=== PATIENT | male | born 1990 | race African-American/Black ===

== ENCOUNTER 2022-08-05 07:06 | Emergency (ER) | payer SELFPAY ==
--- OUTSIDE RECORDS SUMMARY | 2022-08-05 07:09 | XMS REPORT | Continuity of Care Document ---
:1990 Author Organization [facility] t Address [address] [place] [address] Care Team Providers Name Role Phone Asked, No Pcp Primary Care Physician Unavailable CARMEN GUZMAN Attending Clinician Unavailable TERENCE CONNORS Attending Clinician Unavailable BOB CHRISTIANSEN Attending Clinician Unavailable Payers Payer Name Policy Type Policy Number Effective Date Expiration Date S ource Problems This patient has no known problems. Allergies, Adverse Reactions, Alerts Allergy Allergy Status Severity Reaction(s) Onset Inactive Treating Comm ents Source Name Type Date Date Clinician No Known DA Active [facility] Allergie 11-07 [facility] 00:00: d 00 [facility] [place] Social History Social Habit Start Date Stop Date Quantity Comments [facility] History of tobacco Smokes tobacco [facility] Alcohol intake 2021-06-05 2021-06-05 Ex-drinker [facility]00 [facility]:00 (finding) Hospital History of Social 2021-06-05 2021-06-[address] function 00:00:00 00:00:00 Hospital Tobacco use and 2019-11-10 2019-11-10 Smokeless [facility] exposure 00:00:00 00:00:00 tobacco non-user Hospital Sex Assigned At [birth year] [facility] Smoking Status Start Date Stop Date Source Smokes tobacco daily 2019-11-10 00:00:[address] [facility] Medications This patient has no known medications. Procedures This patient has no known procedures. Plan of Care Planned Activity Planned Date Details Comments Source Future Scheduled 2022-07-26 COVID-19 VACCINE (#1) [facility] Test 13:35:13 [code = COVID-19 VACCINE (#1)] Future Scheduled 2022-07-26 Pneumococcal Vaccine: [facility] Test 13:35:13 Pediatrics (0 to 5 Years) and At-Risk Patients (6 to 64 Years) (1 - PCV) [code = Pneumococcal Vaccine: Pediatrics (0 to 5 Years) and At-Risk Patients (6 to 64 Years) (1 - PCV)] Future Scheduled 2022-07-26 Hepatitis C screening [facility] Test 13:35:13 (procedure) [code = 399361318] Future Scheduled 2022-07-26 INFLUENZA VACCINE [facility] Test 13:35:13 [code = INFLUENZA VACCINE] Encounters Start End Encounter Admission Attending Care Care Encounter Source Date/Time Date/Time Type Type Clinicians Facility Department ID 2021-06-05 2021-06-05 Emergency MEGAN, [facility] [id number] 28 [place] 00:00:00 00:00:00 CARMEN [facility] 2021-05-15 2021-05-15 Emergency WAYLON, [place] [address] [id number] 48 [place] 00:00:00 00:00:00 TERENCE [address] 2019-11-10 2019-11-10 Emergency KULDIP, [place] [id number] [place] 00:00:00 00:00:00 BOB Sharma2 [facility] Results Test Description Test Time Test Comments Results Result Comments Source - XR KNEE 3 V LT 2018-11-29 FAX: Babar White 10:08:00 CUATE [phone] [place]: St: REG Name: DESEFRAIN [facility] : 1990 Age/S: 27/M [address] Unit #: [id number] Loc: E.EXP [place], [place] Phys: Babar White [id number] Acct: [id number] Dis Date: Status: REG ER PHONE #: [phone] Exam Date: 11/29/2018 1006 FAX #: [phone] Reason: anterior knee pain and swelling EXAMS: CPT CODE: [id number] XR KNEE 3 V LT 70820 LOCATION: T18 EXAM: LEFT KNEE 3 VIEWS INDICATION: Left knee pain COMPARISON: None available. TECHNIQUE: AP, lateral and oblique radiographs of the left knee FINDINGS: No fracture, dislocation or other acute bony abnormality is identified. Moderate joint effusion present. Anterior knee soft tissue swelling. IMPRESSION: Moderate joint effusion. No acute bony abnormality seen. at 1008 Reported and signed by: Henry Christensen M.D. CC: Babar CUELLO Technologist: MICHELLE MOTT [facility] Date/Time/By: 11/29/2018 (1008) : By: [email or web address] PAGE 1 Signed Report FAX: Babar White [phone] [place]: St: REG Name: EFRAIN NUNES [facility] : 1990 Age/S: 27/M [address] [facility]: [id number] Loc: E.EXP [place], [place] Phys: Babar White [address] Acct: [id number] Dis Date: Status: REG ER PHONE #: [phone] Exam Date: 11/29/2018 1006 FAX #: [phone] Reason: anterior knee pain and swelling EXAMS: CPT CODE: [id number] XR KNEE 3 V LT 67428 (Continued) Orig Print D/T: S: 11/29/2018 (1012) PAGE 2 Signed Report Notes Date/Time Note Provider Source 2018-11-29 09:46:00-00:00 [facility] EMERGENCY PROVIDER REPORT REPORT#:[id number] REPORT STATUS: Signed DATE:11/29/18 TIME: 09 PATIENT: EFRAIN NUNES UNIT #: [id number] ROOM/BED: AGE: 27 SEX: M PCP PHYS: No Primary or Family Ph ysician SERVICE AUTHOR: Babar White * ALL edits or amendments must be made on the Campus Sponsorship/[facility] document * HPI-Knee Prob/Inj General Confirmed Patient Yes Initial Greet Date/Time 11/29/18 0941 Presentation Chief Complaint Knee pain L, Knee swelling L Hx Obtained From Patient Onset Occurred Yesterday Caused by Body motion Location Knee, L anterior, Knee, L posterior Quality Aching Context Recent Healthcare No recent doctor visit, No rec ent hospitalization Similar Sx Previous No Free Text HPI Notes Free Text HPI Notes 27 yo M presents to the ED for a CC of left knee pain and swelling after a twisting injury that occured yesterday [place]. denies any other injuries. no lower leg swelling, no abrasions or lacerations. reports non- weight bearing on left leg. Review of Systems ROS Statements All systems rev neg except as marked. Focused Review of Systems Constitutional Denies: Chills, Fatigue, Fever, Lethargy, Malais e, Recent wt loss, Weakness - generalized. Musculoskeletal Reports: Joint pain, Joint swelling. Denies: Terrell k pain, Extremity pain, Extremity swelling, Lumbar pain, Myalgia, Neck p ain, Thoracic pain. Skin Denies: Abrasion, Abscess, Burn, Contusion, Diap horesis, Erythema, Itching, Jaundice, Laceration, Rash, Swelling, Ulceration . Neurologic Denies: Focal weakness, Numbness. Past Medical History - Adult Stated Complaint LEFT LEG PAIN Allergies Coded Allergies: No Known Allergies (11/07/18) Review of Nursing Notes Rev avail, and agree Pt reports no significant: Past medical history, Past surgical history Alcohol Use Denies EtOH use Drug Use Denies recreational drugs Smoking status for patients 13 years old or olde r: Current every day smoker Pack years (pk/d)*(yrs): 1 Date last smoked: still smoking Physical Exam Vital Signs Vital Signs First Documented: Result Date Time Pulse Ox 96 11/29 938 B/P 123/85 11/29 938 B/P Mean 97 11/29 938 O2 Delivery Room air 11/29 938 Temp 36.8 11/29 938 Pulse 90 11/29 938 Resp 16 11/29 938 Last Documented: Result Date Time Pulse Ox 96 11/29 938 B/P 123/85 11/29 938 B/P Mean 97 11/29 938 O2 Delivery Room air 11/29 938 Temp 36.8 11/29 938 Pulse 90 11/29 938 Resp 16 11/29 938 Review of Vital Signs Reviewed Focused PE General/Const General/Const Awake, Alert, Well appearing Resp/Chest Respiratory/Chest Breath sounds NL, Breath soun ds = bilat, No respiratory distress, No rales, No rhonchi, No wheezing Cardiovascular Cardiovascular Heart rate NL, Regular rhythm, H eart sounds NL, Peripheral circulation NL MS Lower Extrem Left Knee Swelling present (Moderate), Tendernes s present, ROM painful, Joint effusion present. Negative: Erythema present, Warmth pres ent, ROM reduced. Neurologic Neurologic Oriented X3, Speech NL, No motor def icits, No sensory deficits Interpretation Diagnostics Lab Results Interpretation Results Recent Impressions: RADIOLOGY - XR KNEE 3 V LT 11/29 1006 Report Impression - Status: SIGNED Entered: 11/29/2018 1012 IMPRESSION: Moderate joint effusion. No acute carrie ny abnormality seen. Impression By: [email or web address] - Henry Christensen M.D. Point of Care Testing Pulse Oximetry Pulse Ox % 100 On: Room air Interpretation Interpreted by me, Pulse oximetr y normal Time 0956 Radiography X-Ray Interpretation Study Performed left knee Interpretation/Wet Read by Interpret - Radiolog ist Reviewed by ED physician Re-Evaluation MDM ED Course Medication(s) Ordered Medication(s) Ordered: Central Nervous System Agents Sig/Juan Start time Last Medication Dose Route Stop Time Status Admin Ketorolac 10 MG X1ED STA 11/29 945 DC 11/29 Tromethamine PO 11/29 946 0953 Patient Discharge Departure Vital Signs/Condition Vital Signs First Documented: Result Date Time Pulse Ox 96 11/29 938 B/P 123/85 11/29 938 B/P Mean 97 11/29 938 O2 Delivery Room air 11/29 938 Temp 36.8 11/29 938 Pulse 90 11/29 938 Resp 16 11/29 938 Last Documented: Result Date Time Pulse Ox 96 11/29 938 B/P 123/85 11/29 938 B/P Mean 97 11/29 938 O2 Delivery Room air 11/29 938 Temp 36.8 11/29 938 Pulse 90 11/29 938 Resp 16 11/29 938 All vital signs available at the time of this en try have been reviewed. Condition Stable Clinical Impression Clinical Impression Primary Impression: Left knee sprain Disposition Decision Discharge )( Discharged to Home Yes )( Time 1018 )( Date 11/29/18 Discharge/Care Plan Counseled Regarding Diagnosi s, Prescriptions, Need for follow-up, When to return to ED Prescriptions naprosyn, ultram Prescriptions Reviewed Risks, Benefits, Alternat ayush treatment Electronically Signed by Babar White on 1 at 1019 RPT #:[id number] END OF REPORT 2018-11-29 09:46:00-00:00 [facility] ([facility] EMERGENCY PROVIDER REPORT REPORT#:[id number] REPORT STATUS: Signed DATE:11/29/18 TIME: 945 PATIENT: EFRAIN NUNES UNIT #: [id number] ROOM/BED: AGE: 27 SEX: M PCP PHYS: No Primary or Family P hysician SERVICE AUTHOR: Babar White * ALL edits or amendments must be made on the Campus Sponsorship/computer document * Babar White 11/29/18 0946: HPI-Knee Prob/Inj General Confirmed Patient Yes Presentation Chief Complaint Knee pain L, Knee swelling L Hx Obtained From Patient Onset Occurred Yesterday Caused by Body motion Location Knee, L anterior, Knee, L posterior Quality Aching Context Recent Healthcare No recent doctor visit, No rec ent hospitalization Similar Sx Previous No Free Text HPI Notes Free Text HPI Notes 27 yo M presents to the ED for a CC of left knee pain and swelling after a twisting injury that [place]ured [place]. denies any other injuries. no lower leg swelling, no abrasions or lacerations. reports non- weight bearing on left leg. Review of Systems ROS Statements All systems rev neg except as marked. Focused Review of Systems Constitutional Denies: Chills, Fatigue, Fever, Lethargy, Malais e, Recent wt loss, Weakness - generalized. Musculoskeletal Reports: Joint pain, Joint swelling. Denies: Terrell k pain, Extremity pain, Extremity swelling, Lumbar pain, Myalgia, Neck p ain, Thoracic pain. Skin Denies: Abrasion, Abscess, Burn, Contusion, Diap horesis, Erythema, Itching, Jaundice, Laceration, Rash, Swelling, Ulceration . Neurologic Denies: Focal weakness, Numbness. Past Medical History - Adult Stated Complaint LEFT LEG PAIN Allergies Coded Allergies: No Known Allergies (11/07/18) Review of Nursing Notes Rev avail, and agree Pt reports no significant: Past medical history, Past surgical history Alcohol Use Denies EtOH use Drug Use Denies recreational drugs Smoking status for patients 13 years old or olde r: Current every day smoker Pack years (pk/d)*(yrs): 1 Date last smoked: still smoking Physical Exam Vital Signs Vital Signs First Documented: Result Date Time Pulse Ox 96 11/29 938 B/P 123/85 11/29 938 B/P Mean 97 11/29 938 O2 Delivery Room air 11/29 938 Temp 36.8 11/29 938 Pulse 90 11/29 938 Resp 16 11/29 938 Last Documented: Result Date Time Pulse Ox 96 11/29 938 B/P 123/85 11/29 938 B/P Mean 97 11/29 938 O2 Delivery Room air 11/29 938 Temp 36.8 11/29 938 Pulse 90 11/29 938 Resp 16 11/29 938 Review of Vital Signs Reviewed Focused PE General/Const General/Const Awake, Alert, Well appearing Resp/Chest Respiratory/Chest Breath sounds NL, Breath soun ds = bilat, No respiratory distress, No rales, No rhonchi, No wheezing Cardiovascular Cardiovascular Heart rate NL, Regular rhythm, H eart sounds NL, Peripheral circulation NL MS Lower Extrem Left Knee Swelling present (Moderate), Tenderness present , ROM painful, Joint effusion present. Negative: Erythema present, Warmth pres ent, ROM reduced. Neurologic Neurologic Oriented X3, Speech NL, No motor def icits, No sensory deficits Interpretation Diagnostics Lab Results Interpretation Results Recent Impressions: RADIOLOGY - XR KNEE 3 V LT 11/29 1006 Report Impression - Status: SIGNED Entered: 11/29/2018 1012 IMPRESSION: Moderate joint effusion. No acute carrie ny abnormality seen. Impression By: [email or web address] Angeline Christensen M.D. Point of Care Testing Pulse Oximetry Pulse Ox % 100 On: Room air Interpretation Interpreted by me, Pulse oximetr y normal Time 0956 Radiography X-Ray Interpretation Study Performed left knee Interpretation/Wet Read by Interpret - Radiolog ist Reviewed by ED physician Re-Evaluation MDM ED Course Medication(s) Ordered Medication(s) Ordered: Central Nervous System Agents Sig/Juan Start time Last Medication Dose Route Stop Time Status Admin Ketorolac 10 MG X1ED STA 11/29 0946 DC 11/29 Tromethamine PO 11/29 09 0953 Patient Discharge Departure Vital Signs/Condition Vital Signs First Documented: Result Date Time Pulse Ox 96 11/29 0939 B/P 123/85 11/29 0939 B/P Mean 97 11/29 0939 O2 Delivery Room air 11/29 09 Temp 36.8 11/29 09 Pulse 90 11/29 0939 Resp 16 11/29 0839 Last Documented: Result Date Time Pulse Ox 96 11/29 0939 B/P 123/85 11/29 0939 B/P Mean 97 11/29 0939 O2 Delivery Room air 11/29 938 Temp 36.8 11/29 938 Pulse 90 11/29 09 Resp 16 11/29 0939 All vital signs available at the time of this en try have been reviewed. Condition Stable Clinical Impression Clinical Impression Primary Impression: Left knee sprain Disposition Decision Discharge )( Discharged to Home Yes )( Time 1018 )( Date 11/29/18 Discharge/Care Plan Counseled Regarding Diagnosi s, Prescriptions, Need for follow-up, When to return to ED Prescriptions naprosyn, ultram Prescriptions Reviewed Risks, Benefits, Alternat ayush treatment Tim Montalvo 11/29/18 1337: HPI-Knee Prob/Inj General Initial Greet Date/Time 11/29/18 0941 Patient Discharge Departure Supervising Physician Note MidLv Saw Pt Alone I have reviewed the PA/RESCUE WORKER's note and plan of car e. I was available for consultation as needed at al l times during the patient's visit in the emergency department. I agree with the clinical impression , plan and disposition. Electronically Signed by Babar White on at 1019 Electronically Signed by Tim Montalvo DO on 11/09 03/29 at 1338 [facility] #:[id number] END OF REPORT 2018-11-18 08:20:00-00:00 [facility] ([facility] EMERGENCY PROVIDER REPORT REPORT#:[id number] REPORT STATUS: Signed DATE:11/18/18 TIME: 819 PATIENT: EFRAIN NUNES UNIT #: [id number] ROOM/BED: AGE: 27 SEX: M PCP PHYS: No Primary or Family Ph ysician SERVICE AUTHOR: aHlle Gonzalez MD * ALL edits or amendments must be made on the Campus Sponsorship/computer document * HPI-Recheck W/B/S General Confirmed Patient Yes Initial Greet Date/Time 11/18/18 0807 PCP None Presentation Chief Complaint Staple removal Wound/ Injury Type Laceration, Accidentally cut L forearm while using a boxcutter Prior Tx of Wound/Injury Stapled Hx Obtained From Patient Onset Occurred 11/07/2018 Symptom Duration Since onset Progression since Onset Unchanged Location L forearm Severity: Onset Moderate Severity: Current Moderate Associated with Denies: Chills, Fever, Numbness, Weakness. Associated Other Pt denies other symptoms Free Text HPI Notes Free Text HPI Notes 27 y/o M, with no significan t PMHx, presents to the ED for removal of L forearm ellyn, which were placed on 11/07/2018 s/p acc identally cutting L forearm while using a box printer. Pt did not fol low up with a doctor within 2 days and did not see a PCP to remove the ellyn. He hiram es fever, chills, numbness, weakness or any other acute sxs. Pt admits tobac co use and denies EtOH and marijuana use. Portions of this section were scribed by Mau Ring on 11/18/18 at 0908 Review of Systems ROS Statements All systems rev neg except as marked. Focused Review of Systems Constitutional Denies: Chills, Fatigue, Fever. Skin Reports: Laceration (L forea rm, ellyn, healing). Denies: Abscess, Diaphoresis , Swelling. Additional Review of Systems Eyes Denies: Blurred bilat, Discharge bilat. Ears/Nose/Throat Denies: Nasal congestion, Sinus problem, Sore th roat. Respiratory Denies: Cough, productive, Shortness of breath, Wheezing. Cardiovascular Denies: Chest pain, Palpitations, Syncope. GI Denies: Abdominal pain, Nausea, Vomiting. Male Denies: Dysuria, Flank pain, Hematuria. Musculoskeletal Denies: Back pain, Extremity pain, Extremity swe lling. Hematologic Denies: Bleeding, Bruising, Petechiae. Allergy/Immun Denies: Itching, Rhinorrhea, Sneezing. Neurologic Denies: Headache, Lightheaded, Numbness. Portions of this section were scribed by Mau Ring on 11/18/18 at 0908 Past Medical History - Adult Stated Complaint SUTURE REMOVAL Allergies Coded Allergies: No Known Allergies (11/07/18) Review of Nursing Notes Rev avail, and agree Pt reports no significant: Past medical history, Past surgical history Alcohol Use Denies EtOH use Drug Use Denies recreational drugs Smoking status for patients 13 years old or olde r: Current every day smoker Portions of this section were scribed by Mau Ring on 11/18/18 at 0908 Physical Exam Vital Signs Vital Signs First Documented: Result Date Time Pulse Ox 99 11/18 805 B/P 103/69 11/18 805 B/P Mean 80 11/18 805 O2 Delivery Room air 11/18 805 Temp 36.7 11/18 805 Pulse 94 11/18 805 Resp 18 11/18 805 Last Documented: Result Date Time Pulse Ox 98 11/19 839 B/P 105/68 11/19 839 B/P Mean 80 11/19 839 O2 Delivery Room air 11/19 839 Temp 36.8 11/19 839 Pulse 90 11/19 839 Resp 16 11/19 839 Review of Vital Signs Reviewed Focused PE General/Const General/Const Awake, Alert, Cooperative Skin Skin Warm, Dry, No swelling Text/Dict Notes 3 cm healing laceration on L forearm. 3 ellyn present. No drainage, edema, or erythema. Additional PE MS Head Head Atraumatic, Normocephalic Eyes Eyes PERRL, EOMI, No scleral icterus Ears/Nose/Throat Ears/Nose/Throat Airway patent, Mucous membrane s moist, Pharynx NL MS Neck Neck Supple, No meningismus, Full range of ольга on Resp/Chest Respiratory/Chest Breath sounds NL, Breath soun ds = bilat, No respiratory distress Cardiovascular Cardiovascular Heart rate NL, Regular rhythm, H eart sounds NL Abdomen/GI Abdomen/GI Soft, Non-tender, BS normoactive, No distention MS Upper Extrem Upper Extremity/MS No swelling, No erythema, No deformity MS Lower Extrem Lower Ext/Pelvis/MS No swelling, Non-tender, No erythema, No deformity Neurologic Neurologic Oriented X3, Speech NL, No m otor deficits, No sensory deficits, CN II - XII intact Portions of this section were scribed by Mau Ring on 11/18/18 at 0908 Interpretation Diagnostics Point of Care Testing Pulse Oximetry Pulse Ox % 99 On: Room air Interpretation Interpreted by me, Pulse oximetr y normal Time 0806 Portions of this section were scribed by Mau Ring on 11/18/18 at 0908 Procedures Suture Removal Text/Dict Note No bleeding after removing ellyn Time 0816 Procedure Performed by ED physician Wound Condition Good healing, No sign of infecti on, Tendon function normal, Distal neurovasc normal Number Removed Removed ellyn, 3 Portions of this section were scribed by Mau Ring on 11/18/18 at 0908 Re-Evaluation MDM Re-Evaluation/Progress Re-Evaluation/Progress Time of Re-Eval 0820 Re-Eval Status Improved Plan Post Re-Eval Plan discharge Portions of this section were scribed by Mau Ring on 11/18/18 at 0908 Patient Discharge Departure Vital Signs/Condition Vital Signs First Documented: Result Date Time Pulse Ox 99 11/18 805 B/P 103/69 11/18 805 B/P Mean 80 11/18 805 O2 Delivery Room air 11/18 805 Temp 36.7 11/18 805 Pulse 94 11/18 805 Resp 18 11/18 805 Last Documented: Result Date Time Pulse Ox 98 11/19 839 B/P 105/68 11/19 839 B/P Mean 80 11/19 839 O2 Delivery Room air 11/19 839 Temp 36.8 11/19 839 Pulse 90 11/19 839 Resp 16 11/19 839 All vital signs available at the time of this en try have been reviewed. Condition Stable Clinical Impression Clinical Impression Primary Impression: Removal of ellyn Disposition Decision Discharge )( Discharged to Home Yes )( Time 08 )( Date 11/18/18 Discharge/Care Plan Counseled Regarding Diagnosis, Need for follow-u p, Smoking cessation, When to return to ED Discharge Note I have spoken with the patie nt and/or caregivers. I have explained the patient's condition, diagnoses and josette atment plan based on the information available to me at this time. I have answered the patient's and/ or caregiver's questions and addressed any concerns. The patient and/or careg hannah have as good an understanding of the patient 's diagnosis, condition and treatment plan as can be expected at this point. The vital signs have bee n stable. The patient's condition is stable and appr opriate for discharge from the emergency department. The patient will pursue further outpatient evalu ation with the primary care physician or other designated or consulting phys ician as outlined in the discharge instructions. The patient and/or caregivers are agreeable to this plan of care and follow-up instructions have been exp lained in detail. The patient and/or caregivers have received these instructio ns in written format and have expressed an understanding of the discharge inst ructions. The patient and/or caregivers are aware that any significant change in condition or worsening of symptoms should prompt an immediate return to [facility] or the closest emergency department or a call to 911. Quality Measures Smoking Cessation Screened, tobacco user, Tobacc o cess intervention Tobacco Screening/Cessation 18 years or older, Tobacco user, Smoking cessation offered Smoking Cessation Counseling The patient was questioned r egarding their smoking habits, and I have determined , as the patient's treating physician, that ther e is a medical necessity in regards to the patient's med ical condition to provide smoking cessation program education. The patient was a dvised to stop smoking and counseled for a period of greater than 3 minutes. The patient was instructed to follow up with a primary care physician for smoking cessation and given i nformation regarding local smoking cessation programs i n the area. The patient received detailed discharge instructions as to how to stop smoking. The patient expressed an understanding of the need to follow up and the plan for smokin g cessation. Supervising Physician Note Scribe Statement Mau Ring, 11/18/18 0822, scribing for and in the presence of Dr. Gonzalez Signed By: Mau Ring, 11/18/18 0822 Provider Scribed Statement I personally performed the s ervices described in this documentation and reviewed the documentation that was dictated to the scrib e(s) in my presence, and it accurately records my words and actions. Halle Gonzalez, 11/18/18 Portions of this section were scribed by Mau Ring on 11/18/18 at 0908 Electronically Signed by Halle Gonzalez MD on at 0922 RPT #:[id number] END OF REPORT 2018-11-07 14:50:00-00:00 [facility] ([facility]) EMERGENCY PROVIDER REPORT REPORT#:[id number] REPORT STATUS: Signed DATE:11/07/18 TIME: 1450 PATIENT: EFRAIN NUNES UNIT #: [id number] ROOM/BED: AGE: 27 SEX: M PCP PHYS: SERVICE DT: AUTHOR: Babar White * ALL edits or amendments must be made on the el [employer]/computer document * HPI-Elbow/Forearm Prob/Inj General Confirmed Patient Yes Initial Greet Date/Time 11/07/18 1440 Presentation Chief Complaint Forearm injury L Hx Obtained From Patient Onset Occurred Today, Just prior to arrival Symptom Duration Since onset Caused by Knife wound Location Forearm L Quality Aching Context Recent Healthcare No recent doctor visit, No rec ent hospitalization Similar Sx Previous No Free Text HPI Notes Free Text HPI Notes 27 yo M presents to the ED for a CC of a left ar m 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 denies any other injur ies. mild bleeding. tetanus vaccine up to date. Review of Systems ROS Statements All systems rev neg except as marked. Focused Review of Systems Constitutional Denies: Chills, Fatigue, Fever, Lethargy, Malais e, Recent wt loss, Weakness - generalized. Musculoskeletal Reports: Extremity pain. Denies: Back pain, Extr emity swelling, Joint pain, Joint swelling, Lumbar pain, Myalgia, Neck pain, Thoracic pain. Skin Reports: Laceration. Denies: Abrasion, Abscess, Burn, Contusion, Diaphoresis, Erythema, Itching, Jaundice, Rash, Swelling, Ulc eration. Neurologic Denies: Focal weakness, Numbness. Past Medical History - Adult Stated Complaint LACERATION TO LEFT ARM Allergies Coded Allergies: No Known Allergies (11/07/18) Review of Nursing Notes Rev avail, and agree Pt reports no significant: Past medical history, Past surgical history Smoking status for patients 13 years old or olde r: Current every day smoker Pack years (pk/d)*(yrs): 1 Date last smoked: still smoking Physical Exam Vital Signs Vital Signs First Documented: Result Date Time Pulse Ox 99 11/07 1436 B/P 120/76 11/07 1436 B/P Mean 90 11/07 1436 O2 Delivery Room air 11/07 1436 Temp 36.7 11/07 1436 Pulse 98 11/07 1436 Resp 18 11/07 1436 Last Documented: Result Date Time Pulse Ox 99 11/07 1436 B/P 120/76 11/07 1436 B/P Mean 90 11/07 1436 O2 Delivery Room air 11/07 1436 Temp 36.7 11/07 1436 Pulse 98 11/07 1436 Resp 18 11/07 1436 Review of Vital Signs Reviewed Focused PE General/Const General/Const Awake, Alert, Well appearing Resp/Chest Respiratory/Chest Breath sounds NL, Breath soun ds = bilat, No respiratory distress, No rales, No rhonchi, No wheezing Cardiovascular Cardiovascular Heart rate NL, Regular rhythm, H eart sounds NL, Peripheral circulation NL MS Upper Extrem Upper Extremity/MS Full range of motion, No snu ffbox tenderness, Neurologic intact, Vascular intact, No ligamentous injury, Tendon function NL, No compartment syndrome, No cir cumferential injury, 3 cm laceration to left forearm Neurologic Neurologic Oriented X3, Speech NL, No motor def icits, No sensory deficits Interpretation Diagnostics Point of Care Testing Pulse Oximetry Pulse Ox % 100 On: Room air Interpretation Interpreted by me, Pulse oximetr y normal Time 1456 Procedures Laceration Management #1 Time 1509 Procedure Performed by ED CUATE )( Location of Wound left forearm )( Wound Length (cm) 3 Local Anesthesia Lidocaine 1%, 2 mL Wound Preparation Betadine, Normal saline Irrigation Copious Foreign Body Explore/Removal Explored for foreig n body, None found Repair Skin [place] # Sutures - Skin 3 Closure Layers 1 Post-Procedure/Complications Dressing applied, N o complications, Condition improved, Tolerated procedure well, Patient stab le Patient Discharge Departure Vital Signs/Condition Vital Signs First Documented: Result Date Time Pulse Ox 99 11/07 1436 B/P 120/76 / 1436 B/P Mean 90 11/07 1436 O2 Delivery Room air 11/07 1436 Temp 36.7 11/07 1436 Pulse 98 11/07 1436 Resp 18 11/07 1436 Last Documented: Result Date Time Pulse Ox 99 11/07 1436 B/P 120/76 11/07 1436 B/P Mean 90 11/07 1436 O2 Delivery Room air 11/07 1436 Temp 36.7 11/07 1436 Pulse 98 11/07 1436 Resp 18 11/07 1436 All vital signs available at the time of this en try have been reviewed. Condition Stable Clinical Impression Clinical Impression Primary Impression: Forearm laceration Disposition Decision Discharge )( Discharged to Home Yes )( Time 1510 )( Date 11/07/18 Discharge/Care Plan Counseled Regarding Diagnosis, Need for follow-u p, When to return to ED Electronically Signed by Babar White on 0 11/07/18 at 1510 RPT #:[id number] END OF REPORT 2018-11-07 14:50:00-00:00 [facility] ([facility] EMERGENCY PROVIDER REPORT REPORT#:[id number] REPORT STATUS: Signed DATE:11/07/18 TIME: 1450 PATIENT: EFRAIN NUNES UNIT #: [id number] ROOM/BED: AGE: 27 SEX: M PCP PHYS: No Primary or Family Ph ysician SERVICE AUTHOR: Babar White * ALL edits or amendments must be made on the el [employer]/computer document * Babar White 11/07/18 1450: HPI-Elbow/Forearm Prob/Inj General Confirmed Patient Yes Presentation Chief Complaint Forearm injury L Hx Obtained From Patient Onset Occurred Today, Just prior to arrival Symptom Duration Since onset Caused by Knife wound Location Forearm L Quality Aching Context Recent Healthcare No recent doctor visit, No rec ent hospitalization Similar Sx Previous No Free Text HPI Notes Free Text HPI Notes 27 yo M presents to the ED for a CC of a left ar m 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 denies any other injur ies. mild bleeding. tetanus vaccine up to date. Review of Systems ROS Statements All systems rev neg except as marked. Focused Review of Systems Constitutional Denies: Chills, Fatigue, Fever, Lethargy, Malais e, Recent wt loss, Weakness - generalized. Musculoskeletal Reports: Extremity pain. Denies: Back pain, Extr emity swelling, Joint pain, Joint swelling, Lumbar pain, Myalgia, Neck pain, Thoracic pain. Skin Reports: Laceration. Denies: Abrasion, Abscess, Burn, Contusion, Diaphoresis, Erythema, Itching, Jaundice, Rash, Swelling, Ulc eration. Neurologic Denies: Focal weakness, Numbness. Past Medical History - Adult Stated Complaint LACERATION TO LEFT ARM Allergies Coded Allergies: No Known Allergies (11/07/18) Review of Nursing Notes Rev avail, and agree Pt reports no significant: Past medical history, Past surgical history Smoking status for patients 13 years old or olde r: Current every day smoker Pack years (pk/d)*(yrs): 1 Date last smoked: still smoking Physical Exam Vital Signs Vital Signs First Documented: Result Date Time Pulse Ox 99 11/07 1436 B/P 120/76 11/07 1436 B/P Mean 90 11/07 1436 O2 Delivery Room air 11/07 143 Temp 36.7 11/07 1436 Pulse 98 11/07 1436 Resp 18 11/07 1436 Last Documented: Result Date Time Pulse Ox 99 11/07 1436 B/P 120/76 11/07 1436 B/P Mean 90 11/07 1436 O2 Delivery Room air 11/07 143 Temp 36.7 11/07 1436 Pulse 98 11/07 1436 Resp 18 11/07 1436 Review of Vital Signs Reviewed Focused PE General/Const General/Const Awake, Alert, Well appearing Resp/Chest Respiratory/Chest Breath sounds NL, Breath soun ds = bilat, No respiratory distress, No rales, No rhonchi, No wheezing Cardiovascular Cardiovascular Heart rate NL, Regular rhythm, H eart sounds NL, Peripheral circulation NL MS Upper Extrem Upper Extremity/MS Full range of motion, No snu ffbox tenderness, Neurologic intact, Vascular intact, No ligamentous injury, Tendon function NL, No compartment syndrome, No cir cumferential injury, 3 cm laceration to left forearm Neurologic Neurologic Oriented X3, Speech NL, No motor def icits, No sensory deficits Interpretation Diagnostics Point of Care Testing Pulse Oximetry Pulse Ox % 100 On: Room air Interpretation Interpreted by me, Pulse oximetr y normal Time 1456 Procedures Laceration Management #1 Time 1509 Procedure Performed by ED PA )( Location of Wound left forearm )( Wound Length (cm) 3 Local Anesthesia Lidocaine 1%, 2 mL Wound Preparation Betadine, Normal saline Irrigation Copious Foreign Body Explore/Removal Explored for foreig n body, None found Repair Skin [place] # Sutures - Skin 3 Closure Layers 1 Post-Procedure/Complications Dressing applied, N o complications, Condition improved, Tolerated procedure well, Patient stab le Patient Discharge Departure Vital Signs/Condition Vital Signs First Documented: Result Date Time Pulse Ox 99 11/07 1436 B/P 120/76 11/07 1436 B/P Mean 90 11/07 1436 O2 Delivery Room air 11/07 1436 Temp 36.7 11/07 1436 Pulse 98 11/07 1436 Resp 18 11/07 1436 Last Documented: Result Date Time Pulse Ox 99 11/07 1436 B/P 120/76 11/07 1436 B/P Mean 90 11/07 1436 O2 Delivery Room air 11/07 1436 Temp 36.7 11/07 1436 Pulse 98 11/07 1436 Resp 18 11/07 1436 All vital signs available at the time of this en try have been reviewed. Condition Stable Clinical Impression Clinical Impression Primary Impression: Forearm laceration Disposition Decision Discharge )( Discharged to Home Yes )( Time 1510 )( Date 11/07/18 Discharge/Care Plan Counseled Regarding Diagnosis, Need for follow-u p, When to return to ED Micky Chowdhury 11/09/18 2100: HPI-Elbow/Forearm Prob/Inj General Initial Greet Date/Time 11/07/18 1440 Patient Discharge Departure Supervising Physician Note MidLv Saw Pt Alone I have reviewed the PA/RESCUE WORKER's note and plan of car e. I was available for consultation as needed at al l times during the patient's visit in the emergency department. I agree with the clinical impression , plan and disposition. Electronically Signed by Babar White on 0 11/07/18 at 1510 Electronically Signed by Micky Chowdhury MD on 1 at 2271 RPT #:[id number] END OF REPORT
[2022-08-05] MEDS ORDERED: ONDANSETRON 4 MG/2 ML VIAL ONE (07:44)
[2022-08-05] MEDS ORDERED: KETOROLAC 30 MG/ML INJ ONE (07:44)
[2022-08-05] MEDS ORDERED: FAMOTIDINE 20 MG/2 ML VIAL IV ONE (07:45)
[2022-08-05] MEDS ORDERED: DICYCLOMINE HCL 20 MG/2 ML AMP IM ONE (07:45)
[2022-08-05] MEDS ORDERED: NA CHLORIDE 0.9% 1,000 ML ONE (07:45)
[2022-08-05 07:54] LABS: Absolute Lymphocytes (CBC) 1.1 K/uL (0.7-4.9); Hematocrit 43.7 % (39.6-49.0); Lymphocytes % 8.1 % (15.3-44.8); MCV 96.3 fL (80-100); MPV 7.7 fL (7.6-11.3); RBC Red Blood Cell Count 4.54 M/uL (4.33-5.43)
[2022-08-05 08:05] LABS: SARS-CoV-2 Antigen Rapid Res Negative (Negative)
[2022-08-05 08:12] LABS: Bilirubin Total 0.8 mg/dL (0.2-1.0); Magnesium 2.1 mg/dL (1.6-2.4); Potassium 3.7 mEq/L (3.5-5.1); Protein, Total 8.1 g/dL (6.4-8.2)
[2022-08-05 09:53] LABS: Specific Gravity > 1.030 (1.005-1.030); Urine Bacteria <20 /HPF (<20); Urine Bilirubin NEGATIVE (Negative); Urine Blood 2+ (Negative); Urine Clarity Extremely Turbid (Clear); Urine Color Yellow (Yellow); Urine Glucose NEGATIVE (Negative); Urine Mucus 4+ /HPF (None Seen); Urine Protein 1+ (Negative); Urine RBC >50 /HPF (None Seen); Urine Urobilinogen 3+ (Normal)
--- NOTE | 2022-08-05 10:09 | EDPHYS ---
Physician Documentation [facility] Name: Maciej Bradshaw Age: 31 yrs Sex: Male : 1990 Arrival Date: 08/05/2022 Time: 07:06 Bed 6 Private MD: ED Physician Juan Carlos Good HPI: 08/05 08:26 This 31 yrs old Black Male presents to ER via Ambulatory with complaints of Flu rt Symptoms. 08:26 Patient presents to the ED with nausea, vomiting, diarrhea starting yesterday. Of note, rt on Wednesday, patient returned from a cruise. He does report a crampy left upper quadrant pain that is nonradiating, mild in severity. Denies other acute complaints at this time. Symptoms are moderate severity, no other aggravating elevating factors. Historical: - Allergies: 07:21 No Known Allergies; iw - Home Meds: 07:21 None [Active]; iw - PMHx: 07:21 None; iw - PSHx: 07:21 None; iw - Immunization history:: Client reports having NOT received the Covid vaccine. - Social history:: Smoking status: Patient reports the use of cigarette tobacco products. - Family history:: not pertinent. ROS: 08:26 Constitutional: Negative for fever, chills, and weight loss, Cardiovascular: Negative rt for chest pain, palpitations, and edema, Respiratory: Negative for shortness of breath, cough, wheezing, and pleuritic chest pain, MS/Extremity: Negative for injury and deformity, Skin: Negative for injury, rash, and discoloration, Neuro: Negative for headache, weakness, numbness, tingling, and seizure, Psych: Negative for depression, anxiety, suicide ideation, homicidal ideation, and hallucinations. 08:26 Abdomen/GI: Positive for nausea and vomiting, diarrhea. Exam: 08:26 Constitutional: This is a well developed, well nourished patient who is awake, alert, rt and in no acute distress. Head/Face: Normocephalic, atraumatic. Chest/axilla: Normal chest wall appearance and motion. Nontender with no deformity. No lesions are appreciated. Cardiovascular: Regular rate and rhythm with a normal S1 and S2. No gallops, murmurs, or rubs. Normal PMI, no JVD. No pulse deficits. Respiratory: Lungs have equal breath sounds bilaterally, clear to auscultation and percussion. No rales, rhonchi or wheezes noted. No increased work of breathing, no retractions or nasal flaring. Skin: Warm, dry with normal turgor. Normal color with no rashes, no lesions, and no evidence of cellulitis. MS/ Extremity: Pulses equal, no cyanosis. Neurovascular intact. Full, normal range of motion. Neuro: Awake and alert, GCS 15, oriented to person, place, time, and situation. Cranial nerves II-XII grossly intact. Motor strength 5/5 in all extremities. Sensory grossly intact. Cerebellar exam normal. Normal gait. Psych: Awake, alert, with orientation to person, place and time. Behavior, mood, and affect are within normal limits. 08:26 Abdomen/GI: Minimal tenderness diffusely without rebound, guarding, distention. Vital Signs: 07:19 BP 130 / 94; Pulse 91; Resp 16; Temp 98.3; Pulse Ox 98% on R/A; Weight 63.5 kg; Height iw 5 ft. 8 in. ; Pain 10/10; 09:36 Pulse 88; Resp 16; Pulse Ox 99% ; ko1 07:19 Body Mass Index 21.29 (63.50 kg, 172.72 cm) iw 07:19 Pain Scale: Adult iw MDM: 07:22 Patient medically screened. rt 10:11 Differential diagnosis: Gastroenteritis, norovirus, urethritis, UTI, appendicitis, rt cholecystitis. Data reviewed: vital signs, nurses notes, lab test result(s). I considered the following discharge prescriptions or medication management in the emergency department Medications were administered in the Emergency Department. See MAR. Counseling: I had a detailed discussion with the patient and/or guardian regarding: the historical points, exam findings, and any diagnostic results supporting the discharge/admit diagnosis, lab results, the need for outpatient follow up, Counseled patient on sterile pyuria, discussed possibility of this being STI, will send for urine culture, GC. Patient request empiric treatment. Symptoms have significantly improved with treatment in the ED, has a benign abdominal examination. Patient is mild, nonspecific leukocytosis, likely demargination. Very low suspicion clinically for appendicitis, cholecystitis, further imaging to include ultrasound and CT scan are not indicated.. Response to treatment: the patient's symptoms have markedly improved after treatment. 08/05 07:28 Order name: CBC with Diff; Complete Time: 09:05 rt 08/05 07:28 Order name: CMP; Complete Time: 09:05 rt 08/05 07:28 Order name: Lipase; Complete Time: 09:05 rt 08/05 07:28 Order name: UAM; Complete Time: 10:00 rt 08/05 07:28 Order name: Magnesium; Complete Time: 09:05 rt 08/05 07:38 Order name: Flu; Complete Time: 09:05 bp 08/05 07:38 Order name: SARS RAPID; Complete Time: 09:05 bp 08/05 10:01 Order name: Urine Culture EDMS 08/05 10:06 Order name: Urine Culture rt 08/05 10:09 Order name: GC (Chance/Chl) Probe URINE EDMS Administered Medications: 07:52 Drug: Ketorolac IVP 15 mg Route: IVP; Site: right antecubital; bp 10:26 Follow up: Response: No adverse reaction bp 07:52 Drug: Dicyclomine IM 20 mg Route: IM; Site: right deltoid; bp 10:26 Follow up: Response: No adverse reaction bp 07:52 Drug: Famotidine IVP 20 mg Route: IVP; Site: right antecubital; bp 10:26 Follow up: Response: No adverse reaction bp 07:53 Drug: Ondansetron IVP 4 mg Route: IVP; Site: right antecubital; bp 10:26 Follow up: Response: No adverse reaction bp 07:53 Drug: NS 0.9% IV 2000 ml Route: IV; Rate: 1 bolus; Site: right antecubital; bp 10:26 Follow up: IV Status: Completed infusion; IV Intake: 1000ml bp 10:25 Drug: Rocephin (cefTRIAXone) IM 1 grams Route: IM; Site: affected area; bp 10:25 Follow up: Response: No adverse reaction bp Disposition Summary: 08/05/22 10:08 Discharge Ordered Location: Home rt Problem: new rt Symptoms: have improved rt Condition: Stable rt Diagnosis - gastroenteritis rt - sterile pyuria rt Followup: rt - With: Private Physician - When: 2 - 3 days - Reason: Discharge Instructions: - Discharge Summary Sheet rt - Urethritis, Adult rt - Viral Gastroenteritis, Adult rt Forms: - Work release form bp - Medication Reconciliation Form rt - Thank You Letter rt - Antibiotic Education rt - Prescription Opioid Use rt - [email or web address] rt Prescriptions: - ondansetron 4 mg Oral Tablet,disintegrating - take 1 tablet by ORAL route every 6 hours As needed; 18 tablet; Refills: 0, rt Product Selection Permitted - Doxycycline Hyclate 100 mg Oral Tablet - take 1 tablet by ORAL route every 12 hours; 20 tablet; Refills: 0, Product rt Selection Permitted Signatures: [facility] Shannon Herron RN RN iw Peltier, Brian, RN RN bp Turkington, Ryan, MD MD rt
--- NOTE | 2022-08-05 10:09 | ER ---
Nurse's Notes [facility] Name: Maciej Bradshaw Age: 31 yrs Sex: Male : 1990 Arrival Date: 08/05/2022 Time: 07:06 Bed 6 Private MD: Diagnosis: gastroenteritis;sterile pyuria Presentation: 08/05 07:19 Chief complaint: Patient states: vomiting, chills, diarrhea, ;left side pain since iw yesterday , returned from vacation in [place] on Wednesday. Coronavirus screen: Client presents with at least one sign or symptom that may indicate coronavirus-19. Ebola Screen: Patient negative for fever greater than or equal to 101.5 degrees Fahrenheit, and additional compatible Ebola Virus Disease symptoms Patient denies exposure to infectious person. Patient denies travel to an Ebola-affected area in the 21 days before illness onset. No symptoms or risks identified at this time. Initial Sepsis Screen: Does the patient meet any 2 criteria? No. Patient's initial sepsis screen is negative. Does the patient have a suspected source of infection? No. Patient's initial sepsis screen is negative. Risk Assessment: Do you want to hurt yourself or someone else? Patient reports no desire to harm self or others. Onset of symptoms was August 04, 2022. 07:19 Method Of Arrival: Ambulatory 07:19 Acuity: [id number] 3 iw Historical: - Allergies: 07:21 No Known Allergies; iw - Home Meds: 07:21 None [Active]; iw - PMHx: 07:21 None; iw - PSHx: 07:21 None; iw - Immunization history:: Client reports having NOT received the Covid vaccine. - Social history:: Smoking status: Patient reports the use of cigarette tobacco products. - Family history:: not pertinent. Screenin:30 [facility] ED Fall Risk Assessment (Adult) History of falling in the last 3 months, ko1 including since admission No falls in past 3 months (0 pts) Confusion or Disorientation No (0 pts) Intoxicated or Sedated No (0 pts) Impaired Gait No (0 pts) Mobility Assist Device Used No (0 pt) Altered Elimination No (0 pt) Score/Fall Risk Level 0 - 2 = Low Risk Oriented to surroundings, Maintained a safe environment, Educated pt \T\ family on fall prevention, incl call for assistance when getting out of bed, Assessed \T\ reinforced patient's understanding of fall precautions, Provided non-skid footwear, Hourly rounding (assess needs \T\ fall precautionary measures) done, Used ambulatory aids as needed (educated on \T\ assisted with), Used gait belt as appropriate. Abuse screen: Denies threats or abuse. Denies injuries from another. Nutritional screening: No deficits noted. Tuberculosis screening: No symptoms or risk factors identified. Assessment: 07:30 General: Appears in no apparent distress. comfortable, ill, Behavior is calm, ko1 cooperative, appropriate for age. Pain: Denies pain. Neuro: No deficits noted. Cardiovascular: No deficits noted. Respiratory: Reports cough that is non-productive. GI: No deficits noted. : No deficits noted. EENT: Reports nasal congestion nasal discharge that is watery. Derm: No deficits noted. Musculoskeletal: No deficits noted. Vital Signs: 07:19 BP 130 / 94; Pulse 91; Resp 16; Temp 98.3; Pulse Ox 98% on R/A; Weight 63.5 kg; Height iw 5 ft. 8 in. ; Pain 10/10; 09:36 Pulse 88; Resp 16; Pulse Ox 99% ; ko1 07:19 Body Mass Index 21.29 (63.50 kg, 172.72 cm) iw 07:19 Pain Scale: Adult iw ED Course: 07:09 Patient arrived in ED. em1 07:09 Juan Carlos Good MD is Attending Physician. rt 07:15 Lesly oH, RN is Primary Nurse. ko1 07:21 Triage completed. iw 07:21 Arm band placed on. iw 07:30 Patient has correct armband on for positive identification. Bed in low position. Call ko1 light in reach. Pulse ox on. NIBP on. Door closed. Noise minimized. Lights dimmed. Warm blanket given. 07:45 SARS RAPID Sent. ko1 07:45 Flu Sent. ko1 07:47 Magnesium Sent. ko1 07:47 Lipase Sent. ko1 07:47 CMP Sent. ko1 07:47 CBC with Diff Sent. ko1 07:49 Inserted saline lock: 20 gauge in right antecubital area, using aseptic technique. ls5 Blood collected. 09:36 No provider procedures requiring assistance completed. ko1 10:58 IV discontinued, intact, bleeding controlled, No redness/swelling at site. Pressure bp dressing applied. Administered Medications: 07:52 Drug: Ketorolac IVP 15 mg Route: IVP; Site: right antecubital; bp 10:26 Follow up: Response: No adverse reaction bp 07:52 Drug: Dicyclomine IM 20 mg Route: IM; Site: right deltoid; bp 10:26 Follow up: Response: No adverse reaction bp 07:52 Drug: Famotidine IVP 20 mg Route: IVP; Site: right antecubital; bp 10:26 Follow up: Response: No adverse reaction bp 07:53 Drug: Ondansetron IVP 4 mg Route: IVP; Site: right antecubital; bp 10:26 Follow up: Response: No adverse reaction bp 07:53 Drug: NS 0.9% IV 2000 ml Route: IV; Rate: 1 bolus; Site: right antecubital; bp 10:26 Follow up: IV Status: Completed infusion; IV Intake: 1000ml bp 10:25 Drug: Rocephin (cefTRIAXone) IM 1 grams Route: IM; Site: affected area; bp 10:25 Follow up: Response: No adverse reaction bp Medication: 09:36 VIS not applicable for this client. ko1 Intake: 10:26 IV: 1000ml; Total: 1000ml. bp Outcome: 10:08 Discharge ordered by MD. rt 10:58 Discharged to home ambulatory. bp 10:58 Condition: stable 10:58 Discharge instructions given to patient, Instructed on discharge instructions, follow up and referral plans. medication usage, Demonstrated understanding of instructions, follow-up care, medications, Prescriptions given X 2. 10:59 Patient left the ED. bp Signatures: Shannon Crespo RN RN iw Martinez, Eric em1 Tadeo Wilder RN RN bp Lesly Ho, CHARAN RN ko1 Juan Carlos Good MD MD rt Jared Wallace ls5
[2022-08-05] MEDS ORDERED: NA CHLORIDE 0.9% 100 ML ONE (10:30)
[2022-08-05] MEDS ORDERED: CEFTRIAXONE 1000 MG/VIAL ONE (10:30)
[2022-08-05 11:17] VITALS: BP 130/94; TEMP 98.3
[2022-08-05 11:22] VITALS: O2SAT 99
== END 2022-08-05 10:59 | disposition home or self-care (01) ==
LOC: ER 07:06
DX: K52.9 Noninfective gastroenteritis and colitis, unspecified (principal); R82.81 Pyuria
CPT/HCPCS: 36415; 80053; 81001; 83690; 83735; 85025; 87086; 87088; 87490; 87590; 87804; 87811; 96361; 96372; 96374; 96375; 99284; J0500; J0696; J2405; J7030